=== PATIENT | male | born 1940 | race Caucasian/White ===

== ENCOUNTER → 2021-09-15 | Outpatient (CLI) | payer BC, MEDICARE ==
[~2021-09-15] MED LIST: BAMLANIVIMAB (EUA) 700 MG, ETESEVIMAB (EUA) 1,400 MG in SODIUM CHLORIDE 0.9% 100 ML IVPB NR; SODIUM CHLORIDE 0.9% 50 ML IVPB ONE; SODIUM CHLORIDE 0.9% 500 ML 500 ML in EMPTY BAG 1 BAG IV PRN
[2021-09-15 14:25] VITALS: RESP 18; TEMP 96.6
[2021-09-15 15:44] VITALS: BP 147/80; PULSE 64
== END | disposition home or self-care (01) ==
LOC: PROCWHC3 13:56
PROVIDERS: ATTEND Internal Medicine Geriatric Medicine
DX: U07.1 COVID-19 (principal)
CPT/HCPCS: 96360; J3490; M0245

== ENCOUNTER → 2022-02-10 | Outpatient (CLI) | payer MEDICARE ==
--- NOTE | 2022-02-10 16:19 | XR ---
Left foot HISTORY: M87.172,L97.522,M20.42 4 views of the left foot There is a plantar calcaneal spur. Enthesophyte present at the insertion of the Achilles tendon. Soft tissue swelling is present. There is no evident fracture or dislocation. Artifact is superimposed ov er the second digit. Degenerative changes present the metatarsophalangeal joint of the first digit. F lexion of the digits could limit sensitivity. Small ossific density dorsal to the distal talus is wel l-corticated and not felt likely to be acute. IMPRESSION: Soft tissue swelling. Correlate for cellulitis. Additional findings above.
== END | disposition home or self-care (01) ==
LOC: RADXRMAIN 14:51
PROVIDERS: ATTEND Podiatrist Foot Surgery
DX: M87.172 Osteonecrosis due to drugs, left ankle (principal); L97.522 Non-pressure chronic ulcer of other part of left foot with fat layer exposed; M20.42 Other hammer toe(s) (acquired), left foot

== ENCOUNTER → 2022-10-11 | Outpatient (CLI) | payer MEDICARE | END | disposition home or self-care (01) | LOC: LABWHC1 14:09 | PROVIDERS: ATTEND Urology | DX: R97.20 Elevated prostate specific antigen [PSA] (principal) | CPT/HCPCS: 36415; 84153 ==